=== PATIENT | female | born 1965 | race Caucasian/White ===

== ENCOUNTER → 2019-11-09 | Outpatient (REF) | payer BC ==
[2019-11-09 13:03] LABS: BASO % 0.4 % (0.0-1.0); EOS # 0.1 10^3/uL (0.0-0.5); EOS % 2.3 % (0.0-3.0); HEMATOCRIT 40.2 % (36.0-47.0); HEMOGLOBIN 12.8 g/dl (12.0-15.5); LYMPH # 0.9 10^3/uL (1.5-5.0); LYMPH % 19.1 % (24.0-44.0); MEAN CORPUSCULAR HEMOGLOBIN 29.8 pg (27.0-33.0); MEAN CORPUSCULAR HGB CONC 31.8 g/dl (32.0-36.5); MEAN CORPUSCULAR VOLUME 93.5 fl (80.0-96.0); MONO # 0.4 10^3/uL (0.0-0.8); NEUTROPHILS # 3.4 10^3/uL (1.5-8.5); PLATELET COUNT, AUTOMATED 204 10^3/uL (150-450); WHITE BLOOD COUNT 4.9 10^3/uL (4.0-10.0)
[2019-11-09 13:35] LABS: ALBUMIN 3.6 GM/DL (3.2-5.2); ALT/SGPT 20 U/L (12-78); BILIRUBIN,TOTAL 0.5 MG/DL (0.2-1.0); BLOOD UREA NITROGEN 19 MG/DL (7-18); CALCIUM LEVEL 8.6 MG/DL (8.5-10.1); CARBON DIOXIDE LEVEL 30 MEQ/L (21-32); CHLORIDE LEVEL 107 MEQ/L (98-107); CHOLESTEROL LEVEL 258 MG/DL (<200); CREATININE FOR GFR 0.69 MG/DL (0.55-1.30); GLOMERULAR FILTRATION RATE > 60.0 (>51); GLUCOSE, FASTING 78 MG/DL (70-100); HDL CHOLESTEROL 77 MG/DL (>40); LDL CHOLESTEROL 166 MG/DL (<100); MAGNESIUM LEVEL 2.2 MG/DL (1.8-2.4); NON-HDL-C 181 MG/DL; POTASSIUM SERUM 4.2 MEQ/L (3.5-5.1); SODIUM LEVEL 143 MEQ/L (136-145); TOTAL PROTEIN 7.3 GM/DL (6.4-8.2); TRIGLYCERIDES LEVEL 76 MG/DL (<150)
[2019-11-09 13:37] LABS: TOTAL 25(OH) VITAMIN D 26.9 NG/ML (30.0-100.0)
[2019-11-09 13:38] LABS: LUTEINIZING HORMONE 67.3 mIU/mL
== END ==
LOC: M SFHCLACO 10:26
PROVIDERS: ATTEND Physician Assistant
DX: Z00.00 Encounter for general adult medical examination without abnormal findings (principal); F34.1 Dysthymic disorder; N95.1 Menopausal and female climacteric states; R63.5 Abnormal weight gain

== ENCOUNTER 2020-03-04 18:06 | Emergency (ER) | payer BC ==
[~2020-03-04] VITALS: Ht 154.9 cm; Wt 70.8 kg
[2020-03-04] MEDS ORDERED: DULO1CAP5 (18:21)
[2020-03-04] MEDS ORDERED: ONDA4TAB6 (18:21)
[2020-03-04] MEDS ORDERED: SERT50TA29 (18:21)
[2020-03-04] MEDS ORDERED: PROM25TA12 (18:21)
[2020-03-04 19:29] LABS: BASO % 0.3 % (0.0-1.0); HEMATOCRIT 40.7 % (36.0-47.0); HEMOGLOBIN 13.4 g/dl (12.0-15.5); LYMPH # 1.4 10^3/uL (1.5-5.0); LYMPH % 11.3 % (24.0-44.0); MEAN CORPUSCULAR HEMOGLOBIN 29.1 pg (27.0-33.0); MEAN CORPUSCULAR HGB CONC 32.9 g/dl (32.0-36.5); MEAN CORPUSCULAR VOLUME 88.5 fl (80.0-96.0); MONO % 8.1 % (0.0-5.0); NEUTROPHILS # 9.6 10^3/uL (1.5-8.5); NEUTROPHILS % 79.8 % (36.0-66.0); PLATELET COUNT, AUTOMATED 259 10^3/uL (150-450)
[2020-03-04] MEDS ORDERED: ONDANSETRON 4MG/2ML VIAL IV ONE (19:30)
[2020-03-04] MEDS ORDERED: NS 1,000 ML IV ONE (19:30)
[2020-03-04 20:38] LABS: ALT/SGPT 18 U/L (12-78); BILIRUBIN,DIRECT 0.2 MG/DL (0.0-0.2); BLOOD UREA NITROGEN 22 MG/DL (7-18); CALCIUM LEVEL 9.7 MG/DL (8.5-10.1); CARBON DIOXIDE LEVEL 25 MEQ/L (21-32); CHLORIDE LEVEL 100 MEQ/L (98-107); CK-MB VALUE MASS < 1.0 NG/ML (<3.6); CPK CREATINE PHOSPHOKINASE 58 U/L (26-192); CREATININE FOR GFR 0.75 MG/DL (0.55-1.30); GLOMERULAR FILTRATION RATE > 60.0 (>51); GLUCOSE, FASTING 88 MG/DL (70-100); LIPASE 182 U/L (73-393); MB/CK RELATIVE INDEX 1.72 (< OR =4); POTASSIUM SERUM 3.1 MEQ/L (3.5-5.1); SODIUM LEVEL 134 MEQ/L (136-145); TOTAL PROTEIN 8.6 GM/DL (6.4-8.2); TROPONIN I < 0.02 NG/ML (< 0.10)
[2020-03-04] MEDS ORDERED: POTASSIUM CHLORIDE 10 MEQ SR TABLET PO ONE (20:45)
[2020-03-04] MEDS: GASTROGRAFIN SOLUTION 30ML PO SCH ×2 (21:08→21:55)
[2020-03-04] MEDS ORDERED: ISOVUE-370 76% 100ML VIAL As Ordered ONE (22:19)
--- NOTE | 2020-03-04 22:55 | REPVR ---
PROCEDURE INFORMATION: Exam: CT Abdomen And Pelvis With Contrast Exam date and time: 03/04/2020 10:34 PM Age: 55 years old Clinical indication: Abdominal pain; Generalized; Additional info: Abd pain with n/v x4 days R/O infectious process TECHNIQUE: Imaging protocol: Computed tomography of the abdomen and pelvis with intravenous contrast. Radiation optimization: All CT scans at this facility use at least one of these dose optimization techniques: automated exposure control; mA and/or kV adjustment per patient size (includes targeted exams where dose is matched to clinical indication); or iterative reconstruction. Contrast material: ISOVUE 370; Contrast volume: 100 ml; Contrast route: INTRAVENOUS (IV); COMPARISON: No relevant prior studies available. FINDINGS: Liver: There is a diffuse decrease in hepatic parenchymal density, consistent with steatosis. Several small simple hepatic cysts measure up to 9 mm in segment 4A of the left lobe of the liver. Gallbladder and bile ducts: Normal. No calcified stones. No ductal dilation. Pancreas: Normal. No ductal dilation. Spleen: Normal. No splenomegaly. Adrenals: Normal. No mass. Kidneys and ureters: 1.4 cm calculus demonstrated in the left renal pelvis associated with inflammatory changes in the left renal pelvis and proximal left ureter, findings suggestive of infection. Stomach and bowel: Unremarkable. No obstruction. No mucosal thickening. Appendix: No evidence of appendicitis. Intraperitoneal space: Unremarkable. No free air. No significant fluid collection. Vasculature: Unremarkable. No abdominal aortic aneurysm. Lymph nodes: Unremarkable. No enlarged lymph nodes. Urinary bladder: Unremarkable as visualized. Reproductive: Unremarkable as visualized. Bones/joints: Mild central spinal stenosis L2-L3, moderate central spinal stenosis L3-L4 and L4-L5. Soft tissues: Unremarkable. IMPRESSION: 1. There is a diffuse decrease in hepatic parenchymal density, consistent with steatosis. 2. 1.4 cm calculus demonstrated in the left renal pelvis associated with inflammatory changes in the left renal pelvis and proximal left ureter, findings suggestive of infection. 3. Small hepatic cysts. Electronically signed by: Zac Geiger On 03/04/2020 22:55:10 PM
[2020-03-04] MEDS ORDERED: LevoFLOXacin IV 750 MG in IV 1 EA IV ONE (23:15)
[2020-03-05] MEDS ORDERED: LEVA750T7 PO (01:07)
[2020-03-05 01:34] VITALS: BP 162/90
--- NOTE | 2020-03-05 07:33 | ECGEPIP ---
[facility] - ED Test Date: 2020-03-04 Pat Name: KERRY LOBATO Department: Room: - Gender: Female [employer]: oma : [id number] Requested By: Priscila Melton Order Number: [id number] Reading MD: Didier Resendez Measurements Intervals [place] Rate: 93 P: 4 ND: 96 QRS: 27 QRSD: 94 T: 40 QT: 363 QTc: 454 Interpretive Statements SINUS RHYTHM WITH SHORT ND INTERVAL POSSIBLE LEFT ATRIAL ENLARGEMENT INCOMPLETE RIGHT BUNDLE BRANCH BLOCK POOR R WAVE PROGRESSION SIMILAR TO PRIOR ON SAME DATE Electronically Signed on 03-05-2020 7:33:47 EDT by Didier Resendez
== END 2020-03-05 01:35 | disposition home or self-care (01) ==
LOC: M ED 18:06
DX: N10 Acute pyelonephritis (principal); N20.0 Calculus of kidney; E78.5 Hyperlipidemia, unspecified; F32.9 Major depressive disorder, single episode, unspecified; Z88.0 Allergy status to penicillin; Z88.1 Allergy status to other antibiotic agents
CPT/HCPCS: 36415; 74177; 80048; 80076; 81001; 82550; 82553; 83690; 84484; 85025; 87088; 87186; 93005; 96361; 96365; 96366; 96375; 99284; J1956; J2405; Q9963; Q9967

== ENCOUNTER 2020-10-09 14:06 | Emergency (ER) | payer BC ==
[~2020-10-09] VITALS: Ht 160 cm; Wt 76.0 kg
[~2020-10-09 14:06] MED LIST: DULO1CAP5; LEVA750T7 PO; ONDA4TAB6; PROM25TA12; SERT50TA29
[2020-10-09] MEDS ORDERED: VALA500T5 (14:14)
[2020-10-09] MEDS ORDERED: GABA-1171 (14:14)
[2020-10-09] MEDS ORDERED: PRED10TA2 (14:14)
[2020-10-09 17:48] LABS: HEMATOCRIT 38.2 % (36.0-47.0); HEMOGLOBIN 12.2 g/dl (12.0-15.5); MEAN CORPUSCULAR HGB CONC 31.9 g/dl (32.0-36.5); MEAN CORPUSCULAR VOLUME 90.7 fl (80.0-96.0); PLATELET COUNT, AUTOMATED 194 10^3/uL (150-450); RED BLOOD COUNT 4.21 10^6/uL (4.00-5.40)
[2020-10-09 18:03] LABS: ATYPICAL LYMPH 3 % (0-5); BASOPHILS 3 % (0-1); EOSINOPHILS 3 % (0-3); LYMPHOCYTES 26 % (16-44); MONOCYTES 7 % (0-5); NEUTROPHILS 58 % (28-66); PLATELET ESTIMATE NORMAL (NORMAL)
[2020-10-09] MEDS ORDERED: NS 1,000 ML IV ONE (18:10)
[2020-10-09 18:15] LABS: ALBUMIN 3.6 GM/DL (3.2-5.2); ALT/SGPT 26 U/L (12-78); BILIRUBIN,DIRECT < 0.1 MG/DL (0.0-0.2); BILIRUBIN,TOTAL 0.4 MG/DL (0.2-1.0); C REACTIVE PROTEIN QUANTITATIV 1.15 MG/DL (0.00-0.30); TOTAL PROTEIN 7.7 GM/DL (6.4-8.2)
[2020-10-09 18:16] LABS: ERYTHROCYTE SEDIMENTATION RATE 46 mm/hr (0-30)
[2020-10-09] MEDS ORDERED: ISOVUE-370 76% 100ML VIAL As Ordered ONE (18:28)
[2020-10-09] MEDS ORDERED: PROPARACAINE 0.5% OPHTH SOL 15ML OU ONE (18:45)
[2020-10-09] MEDS ORDERED: FLUORESCEIN OPHTH 1 MG STRIP OU ONE (18:45)
--- NOTE | 2020-10-09 18:52 | REPVR ---
PROCEDURE INFORMATION: Exam: CT Orbits With Contrast Exam date and time: 10/09/2020 5:08 PM Age: 55 years old Clinical indication: Condition or disease; Other: Ocular shingle; Additional info: Ocular shingles TECHNIQUE: Imaging protocol: Computed tomography images of the orbits with intravenous contrast. Radiation optimization: All CT scans at this facility use at least one of these dose optimization techniques: automated exposure control; mA and/or kV adjustment per patient size (includes targeted exams where dose is matched to clinical indication); or iterative reconstruction. Contrast material: ISOVUE 370; Contrast volume: 75 ml; Contrast route: INTRAVENOUS (IV); COMPARISON: No relevant prior studies available. FINDINGS: Orbital cavity: No postseptal orbital or ocular inflammatory changes identified. The extraocular muscles do not appear enlarged or inflamed. Paranasal sinuses: Retention cyst or polyp in the inferior left maxillary sinus. No evidence of acute or chronic obstructive sinusitis. Oropharynx: The palatine tonsils are mildly enlarged, probably a chronic finding. Bones/joints: The nasal septum is deviated to the left. Lymph nodes: Small bilateral parotid lymph nodes, likely normal or reactive. Soft tissues: Mild frontal scalp and medial periorbital soft tissue edema. No evidence of soft tissue abscess. IMPRESSION: No orbital inflammatory changes identified. Electronically signed by: Mitali Chou On 10/09/2020 18:52:16 PM
[2020-10-09 21:31] VITALS: BP 133/82
== END 2020-10-09 21:36 | disposition short-term general hospital (02) ==
LOC: M ED 14:06
DX: B02.9 Zoster without complications (principal); I10 Essential (primary) hypertension; E78.5 Hyperlipidemia, unspecified; Z88.0 Allergy status to penicillin; Z88.1 Allergy status to other antibiotic agents; Z79.899 Other long term (current) drug therapy
CPT/HCPCS: 70487; 80047; 80076; 85025; 85652; 86140; 96360; 96361; 99284; Q9967; U0002

== ENCOUNTER → 2022-05-07 | Outpatient (CLI) | payer BC ==
[~2022-05-07] MED LIST changes: +GABA-1171; +PRED10TA2; +VALA500T5
== END ==
LOC: M WHC 13:35
PROVIDERS: ATTEND Physical Therapist
DX: Z12.31 Encounter for screening mammogram for malignant neoplasm of breast (principal)

== ENCOUNTER 2024-04-21 22:48 | Emergency (ER) | payer BC ==
[~2024-04-21] VITALS: Ht 154.9 cm; Wt 70.5 kg
[~2024-04-21 22:48] MED LIST changes: +ONDA-282; -ONDA4TAB6
[2024-04-22] MEDS: ONDANSETRON 4MG 2ML VIAL IV ONE (01:03)
[2024-04-22] MEDS: KETOROLAC 30 MG/ML 1ML VIAL IV ONE (01:03)
[2024-04-22 01:28] LABS: BASO % 0.2 % (0.0-1.0); EOS % 0.1 % (0.0-3.0); HEMATOCRIT 35.3 % (36.0-47.0); HEMOGLOBIN 11.9 g/dl (12.0-15.5); LYMPH # 0.4 10^3/uL (1.5-5.0); LYMPH % 4.2 % (24.0-44.0); MEAN CORPUSCULAR HEMOGLOBIN 29.8 pg (27.0-33.0); MEAN CORPUSCULAR HGB CONC 33.7 g/dl (32.0-36.5); MEAN CORPUSCULAR VOLUME 88.5 fl (80.0-96.0); MONO # 0.2 10^3/uL (0.0-0.8); MONO % 1.8 % (2.0-8.0); NEUTROPHILS # 9.5 10^3/uL (1.5-8.5); NEUTROPHILS % 93.5 % (36.0-66.0); PLATELET COUNT, AUTOMATED 234 10^3/uL (150-450); RED BLOOD COUNT 3.99 10^6/uL (4.00-5.40); WHITE BLOOD COUNT 10.2 10^3/uL (4.0-10.0)
[2024-04-22 01:36] LABS: APPEARANCE, URINE HAZY (CLEAR); BACTERIA, URINE AUTO 1+ (NEGATIVE); BILIRUBIN, URINE AUTO NEGATIVE (NEGATIVE); BLOOD, URINE BLOOD 3+ (NEGATIVE); COLOR, URINE YELLOW (YELLOW); GLUCOSE, URINE (UA) AUTO NEGATIVE (NEGATIVE); KETONE, URINE AUTO 1+ mg/dL (NEGATIVE); LEUKOCYTE ESTERASE, URINE AUTO 2+ (NEGATIVE); MUCUS, URINE SMALL (NEGATIVE); NITRITE, URINE AUTO NEGATIVE (NEGATIVE); PROTEIN, URINE AUTO 2+ mg/dL (NEGATIVE); RBC, URINE AUTO 106 /HPF (0-3); SPECIFIC GRAVITY URINE AUTO 1.018 (1.002-1.035); SQUAMOUS EPITHELIAL CELL UR AU 0 /HPF (0-6); UROBILINOGEN, URINE AUTO 0.2 mg/dL (0.0-2.0); WBC, URINE AUTO 13 /HPF (0-3)
[2024-04-22 02:24] LABS: ALBUMIN 3.8 G/DL (3.2-5.2); ALKALINE PHOSPHATASE 85 U/L (35-104); ALT/SGPT 16 U/L (7.0-40); AST/SGOT 35 U/L (<34); BILIRUBIN,DIRECT < 0.1 MG/DL (<0.4); BILIRUBIN,TOTAL 0.5 MG/DL (0.3-1.2); BLOOD UREA NITROGEN 24 MG/DL (9-23); CARBON DIOXIDE LEVEL 26 MMOL/L (20-31); CHLORIDE LEVEL 103 MMOL/L (98-107); CREATININE FOR GFR 0.76 MG/DL (0.55-1.30); GLOMERULAR FILTRATION RATE > 60.0 (>51); GLUCOSE, FASTING 165 MG/DL (60-100); LIPASE 28 U/L (12-53); POTASSIUM SERUM 4.8 MMOL/L (3.5-5.1); SODIUM LEVEL 137 MMOL/L (136-145); TOTAL PROTEIN 8.3 G/DL (5.7-8.2)
[2024-04-22] MEDS: METOCLOPRAMIDE INJ 10MG/2ML VIAL IV ONE (03:00)
[2024-04-22] MEDS: MORPHINE 4 MG/ML 1ML VIAL IV PRN (04:52)
[2024-04-22 06:00] VITALS: BP 167/92
[2024-04-22 06:03] VITALS: TEMP 98.1
[2024-04-22] MEDS ORDERED: PERC5TAB12 PO (06:10)
[2024-04-22] MEDS ORDERED: ONDA-282 PO (06:10)
[2024-04-22 06:22] VITALS: O2SAT 98
[2024-04-22] MEDS: OXYCODONE/APAP 5MG/325MG(HOME DOSE PACK) PO ONE (07:07)
== END 2024-04-22 07:12 | disposition home or self-care (01) ==
LOC: M ED 22:48
DX: N13.2 Hydronephrosis with renal and ureteral calculous obstruction (principal); Z88.0 Allergy status to penicillin; Z88.1 Allergy status to other antibiotic agents; M51.369 Other intervertebral disc degeneration, lumbar region without mention of lumbar back pain or lower extremity pain
CPT/HCPCS: 74176; 80047; 80048; 80076; 81001; 83690; 85025; 96374; 96375; 99284; J1885; J2405; J2765

== ENCOUNTER 2024-05-11 15:57 | Observation (INO) | payer BC ==
[~2024-05-11] VITALS: Ht 154.9 cm; Wt 67.3 kg
[~2024-05-11 15:57] MED LIST changes: -GABA-1171; +GABA-1171 PO; +ONDA-282 PO; +PERC5TAB12 PO
[2024-05-11] MEDS ORDERED: BUPR-597 PO (16:14)
[2024-05-11 17:46] LABS: BLOOD UREA NITROGEN 18 MG/DL (9-23); CALCIUM LEVEL 9.9 MG/DL (8.5-10.1); CARBON DIOXIDE LEVEL 26 MMOL/L (20-31); CHLORIDE LEVEL 102 MMOL/L (98-107); CREATININE FOR GFR 0.67 MG/DL (0.55-1.30); GLOMERULAR FILTRATION RATE > 60.0 (>51); GLUCOSE, FASTING 122 MG/DL (60-100); HEMATOCRIT 38.5 % (36.0-47.0); HEMOGLOBIN 12.7 g/dl (12.0-15.5); MEAN CORPUSCULAR HEMOGLOBIN 29.5 pg (27.0-33.0); MEAN CORPUSCULAR VOLUME 89.3 fl (80.0-96.0); PLATELET COUNT, AUTOMATED 231 10^3/uL (150-450); POTASSIUM SERUM 3.5 MMOL/L (3.5-5.1); RED BLOOD COUNT 4.31 10^6/uL (4.00-5.40); SODIUM LEVEL 139 MMOL/L (136-145); WHITE BLOOD COUNT 10.4 10^3/uL (4.0-10.0)
[2024-05-11] MEDS: ONDANSETRON 4MG 2ML VIAL IV ONE (19:06)
[2024-05-11] MEDS: MORPHINE 4 MG/ML 1ML VIAL IV ONE (19:11)
[2024-05-11] MEDS ORDERED: ISOVUE-370 76% 100ML VIAL As Ordered ONE (19:26)
[2024-05-11] MEDS ORDERED: ACETAMINOPHEN 325 MG TAB PO PRN (21:45)
[2024-05-11] MEDS ORDERED: PROMETHAZINE 25MG/ML 1ML VIAL IV PRN (21:45)
[2024-05-11] MEDS ORDERED: MOM 30ML SUSPENSION UDC PO PRN (21:45)
[2024-05-11 22:26] VITALS: BP 119/97; TEMP 97.7; O2SAT 97
[2024-05-11] MEDS: MORPHINE 2 MG/ML 1ML VIAL IV PRN (22:36)
[2024-05-11] MEDS ORDERED: MULT-90 PO (23:03)
[2024-05-11] MEDS ORDERED: OXYC1TAB23 PO (23:03)
[2024-05-11] MEDS ORDERED: ALBU8.5H INH (23:03)
[2024-05-11] MEDS ORDERED: ONDA-282 PO (23:03)
[2024-05-11] MEDS ORDERED: NEUR100C PO (23:03)
[2024-05-11] MEDS ORDERED: ZOLO100T PO (23:03)
[2024-05-11] MEDS ORDERED: HOME MED LIST COMPLETE! XX SCH (23:05)
[2024-05-12] VITALS (13 sets, daily range): BP systolic 134–193; BP diastolic 83–123; TEMP 97–98.2; O2SAT 95–99
[2024-05-12 06:33] LABS: ALBUMIN 3.6 G/DL (3.2-5.2); ALKALINE PHOSPHATASE 72 U/L (35-104); ALT/SGPT 14 U/L (7.0-40); AST/SGOT 14 U/L (<34); BILIRUBIN,TOTAL 0.6 MG/DL (0.3-1.2); BLOOD UREA NITROGEN 19 MG/DL (9-23); CALCIUM LEVEL 9.9 MG/DL (8.5-10.1); CARBON DIOXIDE LEVEL 28 MMOL/L (20-31); CHLORIDE LEVEL 102 MMOL/L (98-107); CREATININE FOR GFR 0.82 MG/DL (0.55-1.30); GLOMERULAR FILTRATION RATE > 60.0 (>51); GLUCOSE, FASTING 88 MG/DL (60-100); POTASSIUM SERUM 3.4 MMOL/L (3.5-5.1); SODIUM LEVEL 139 MMOL/L (136-145); TOTAL PROTEIN 7.5 G/DL (5.7-8.2)
[2024-05-12] MEDS: HEPARIN SOD (PORCINE) 5000UNITS/ML 1ML VIAL/SYRINGE SC SCH (08:07)
[2024-05-12] MEDS: cefTRIAXone SOD 1 GM in DEXTROSE 5% (D5W) ADV/MINI-BAG 50 ML IV SCH (08:07)
[2024-05-12] MEDS: POTASSIUM CHLORIDE 10% LIQ 20MEQ/15ML UDC PO ONE (08:07)
[2024-05-12 08:19] LABS: HEMOGLOBIN 12.8 g/dl (12.0-15.5); MEAN CORPUSCULAR HEMOGLOBIN 29.6 pg (27.0-33.0); MEAN CORPUSCULAR HGB CONC 32.8 g/dl (32.0-36.5); MEAN CORPUSCULAR VOLUME 90.1 fl (80.0-96.0); PLATELET COUNT, AUTOMATED 205 10^3/uL (150-450); RED BLOOD COUNT 4.33 10^6/uL (4.00-5.40); WHITE BLOOD COUNT 8.6 10^3/uL (4.0-10.0)
[2024-05-12 08:31] LABS: INR 1.06; PARTIAL THROMBOPLASTIN TIME 26.8 SECONDS (24.8-34.2); PROTHROMBIN TIME 14.1 SECONDS (12.5-14.5)
[2024-05-12] MEDS: NS 1,000 ML IV SCH ×2 (10:49→17:14)
[2024-05-12] MEDS ORDERED: propofoL 200 MG/20 ML VIAL As Ordered ONE (11:28)
[2024-05-12] MEDS ORDERED: LIDOCAINE PRES-FREE 2% 10ML AMP As Ordered ONE (11:28)
[2024-05-12] MEDS ORDERED: MIDAZOLAM INJ 2MG/2ML VIAL As Ordered ONE (11:28)
[2024-05-12] MEDS ORDERED: fentaNYL 100 MCG/2 ML INJECTION As Ordered ONE (11:29)
[2024-05-12] MEDS ORDERED: oxyCODONE 5MG TAB PO PRN (11:30)
[2024-05-12] MEDS ORDERED: ONDANSETRON 4MG 2ML VIAL IV PRN (11:30)
[2024-05-12] MEDS ORDERED: HYDROMORPHONE HCL 0.5 MG/ 0.5 ML SYRINGE IV PRN (11:30)
[2024-05-12] MEDS ORDERED: fentaNYL 100 MCG/2 ML INJECTION IV PRN (11:30)
[2024-05-12] MEDS ORDERED: MEPERIDINE 25 MG/ML 1ML VIAL IV PRN (11:30)
[2024-05-12] MEDS: CIPROFLOXACIN/D5W 400 MG/200 ML BAG As Ordered ONE (11:58)
[2024-05-12] MEDS: LIDOCAINE 2% 5ML JELLY UROJET As Ordered ONE (12:07)
[2024-05-12] MEDS: ISOVUE-300 61% 100ML VIAL As Ordered ONE (12:08)
[2024-05-12] MEDS: oxyBUTYnin 5 MG TAB PO PRN (15:09)
[2024-05-12] MEDS ORDERED: MORPHINE 4 MG/ML 1ML VIAL IV PRN (16:40)
[2024-05-12] MEDS: PROMETHAZINE 25MG/ML 1ML VIAL IV ONE (17:12)
[2024-05-12] MEDS: **hydrALAZINE** 10 MG TAB PO ONE (18:37)
[2024-05-12] MEDS: ONDANSETRON 4MG 2ML VIAL IV PRN (20:12)
[2024-05-12] MEDS: amLODIPine 5 MG TAB PO SCH (22:57)
[2024-05-13 01:21] VITALS: BP 166/98; TEMP 97.3; O2SAT 98
[2024-05-13 05:26] VITALS: BP 172/100; TEMP 97.9; O2SAT 94
[2024-05-13] MEDS: POTASSIUM CHLORIDE 10MEQ SR TABLET PO ONE (05:56)
[2024-05-13] MEDS: **hydrALAZINE** 10 MG TAB PO ONE (05:57)
[2024-05-13] MEDS: PERCOCET 5MG/325MG TAB PO SCH (06:00)
[2024-05-13 06:17] LABS: HEMATOCRIT 40.9 % (36.0-47.0); HEMOGLOBIN 13.1 g/dl (12.0-15.5); MEAN CORPUSCULAR HEMOGLOBIN 29.3 pg (27.0-33.0); MEAN CORPUSCULAR VOLUME 91.5 fl (80.0-96.0); PLATELET COUNT, AUTOMATED 210 10^3/uL (150-450); RED BLOOD COUNT 4.47 10^6/uL (4.00-5.40)
[2024-05-13 06:45] LABS: BLOOD UREA NITROGEN 21 MG/DL (9-23); CALCIUM LEVEL 9.1 MG/DL (8.5-10.1); CARBON DIOXIDE LEVEL 24 MMOL/L (20-31); CHLORIDE LEVEL 104 MMOL/L (98-107); CREATININE FOR GFR 0.66 MG/DL (0.55-1.30); GLOMERULAR FILTRATION RATE > 60.0 (>51); GLUCOSE, FASTING 101 MG/DL (60-100); POTASSIUM SERUM 3.8 MMOL/L (3.5-5.1); SODIUM LEVEL 140 MMOL/L (136-145)
[2024-05-13] MEDS ORDERED: MORPHINE 4 MG/ML 1ML VIAL IV PRN (07:10)
[2024-05-13 08:00] VITALS: BP 147/58; TEMP 97.9; O2SAT 94
[2024-05-13] MEDS: ALBUTEROL 90 MCG/ACT 8GM HFA INHALER INH SCH (08:00)
[2024-05-13] MEDS: GABAPENTIN 100 MG CAP PO SCH (08:03)
[2024-05-13] MEDS ORDERED: PROMETHAZINE 25MG/ML 1ML VIAL IV PRN (08:25)
[2024-05-13] MEDS: METOCLOPRAMIDE INJ 10MG/2ML VIAL IV ONE (09:00)
[2024-05-13 12:00] VITALS: BP 150/70; TEMP 97.9; O2SAT 95
[2024-05-13] MEDS ORDERED: ALBUTEROL 90 MCG/ACT 8GM HFA INHALER INH PRN (12:30)
[2024-05-13] MEDS: MORPHINE 2 MG/ML 1ML VIAL IV PRN (13:24)
[2024-05-13 16:00] VITALS: BP 158/62; TEMP 97.7; O2SAT 97
[2024-05-13] MEDS: buPROPion **XL** TABLET 150MG (WELLBUTRIN XL) PO SCH (20:27)
[2024-05-13] MEDS: SERTRALINE HCL 50 MG TAB PO SCH (20:27)
[2024-05-13] MEDS ORDERED: SERTRALINE 100 MG TAB PO SCH (21:00)
[2024-05-14] VITALS (9 sets, daily range): BP systolic 134–188; BP diastolic 90–111; TEMP 97.3–97.7; O2SAT 95–98
[2024-05-14 06:03] LABS: HEMATOCRIT 40.4 % (36.0-47.0); HEMOGLOBIN 13.3 g/dl (12.0-15.5); MEAN CORPUSCULAR HEMOGLOBIN 29.6 pg (27.0-33.0); MEAN CORPUSCULAR HGB CONC 32.9 g/dl (32.0-36.5); MEAN CORPUSCULAR VOLUME 89.8 fl (80.0-96.0); PLATELET COUNT, AUTOMATED 210 10^3/uL (150-450); WHITE BLOOD COUNT 8.2 10^3/uL (4.0-10.0)
[2024-05-14 06:36] LABS: BLOOD UREA NITROGEN 16 MG/DL (9-23); CALCIUM LEVEL 8.7 MG/DL (8.5-10.1); CARBON DIOXIDE LEVEL 25 MMOL/L (20-31); CHLORIDE LEVEL 102 MMOL/L (98-107); CREATININE FOR GFR 0.58 MG/DL (0.55-1.30); GLOMERULAR FILTRATION RATE > 60.0 (>51); GLUCOSE, FASTING 93 MG/DL (60-100); POTASSIUM SERUM 3.6 MMOL/L (3.5-5.1); SODIUM LEVEL 137 MMOL/L (136-145)
[2024-05-14] MEDS: FUROSEMIDE 40MG/4ML VIAL IV ONE (10:27)
[2024-05-14] MEDS: **hydrALAZINE** 10 MG TAB PO ONE (11:55)
[2024-05-14] MEDS: LACTULOSE 20GM/30ML SYRUP UDC PO ONE (18:18)
[2024-05-14] MEDS: SENNA 8.6 MG TAB (SENOKOT) PO SCH (21:49)
[2024-05-14] MEDS: DOCUSATE SODIUM 100MG CAPSULE PO SCH (21:49)
[2024-05-15] VITALS: BP 138/93; TEMP 97.3; O2SAT 96
[2024-05-15] MEDS: LACTULOSE 20GM/30ML SYRUP UDC PO SCH
[2024-05-15 03:31] VITALS: BP 141/92; TEMP 97.5; O2SAT 97
[2024-05-15 05:38] LABS: HEMATOCRIT 41.4 % (36.0-47.0); HEMOGLOBIN 14.1 g/dl (12.0-15.5); MEAN CORPUSCULAR HEMOGLOBIN 29.7 pg (27.0-33.0); MEAN CORPUSCULAR HGB CONC 34.1 g/dl (32.0-36.5); MEAN CORPUSCULAR VOLUME 87.2 fl (80.0-96.0); PLATELET COUNT, AUTOMATED 224 10^3/uL (150-450); RED BLOOD COUNT 4.75 10^6/uL (4.00-5.40); WHITE BLOOD COUNT 9.3 10^3/uL (4.0-10.0)
[2024-05-15 06:12] LABS: BLOOD UREA NITROGEN 24 MG/DL (9-23); CALCIUM LEVEL 9.6 MG/DL (8.5-10.1); CARBON DIOXIDE LEVEL 30 MMOL/L (20-31); CHLORIDE LEVEL 96 MMOL/L (98-107); CREATININE FOR GFR 0.66 MG/DL (0.55-1.30); GLOMERULAR FILTRATION RATE > 60.0 (>51); GLUCOSE, FASTING 108 MG/DL (60-100); POTASSIUM SERUM 3.3 MMOL/L (3.5-5.1); SODIUM LEVEL 135 MMOL/L (136-145)
[2024-05-15 08:00] VITALS: BP 132/91; TEMP 97.9; O2SAT 96
[2024-05-15 08:12] VITALS: BP 132/91
[2024-05-15] MEDS: CEFDINIR 300 MG CAP (OMNICEF) PO SCH (08:12)
[2024-05-15] MEDS: POTASSIUM CHLORIDE 10MEQ SR TABLET PO ONE (08:25)
[2024-05-15 12:20] VITALS: BP 148/100; TEMP 97.5; O2SAT 98
[2024-05-15 12:24] VITALS: O2SAT 98
[2024-05-15] MEDS ORDERED: OXYB5TAB14 PO (15:00)
[2024-05-15] MEDS ORDERED: COLA100C5 PO (15:00)
[2024-05-15] MEDS ORDERED: SENO8.6T5 PO (15:00)
[2024-05-15] MEDS ORDERED: AMLO1TAB24 PO (15:00)
[2024-05-15] MEDS ORDERED: ONDA-282 PO (15:03)
[2024-05-15] MEDS ORDERED: CEFD300CAP PO (15:04)
[2024-05-15] MEDS ORDERED: MOM30SS2 PO (15:07)
[2024-05-21] MEDS ORDERED: COLA100C5 PO (11:11)
[2024-05-21] MEDS ORDERED: OXYB5TAB14 PO (11:11)
== END 2024-05-15 17:30 | disposition home or self-care (01) ==
LOC: M ED 15:57 → M ED INP 21:45 → M MSPAV 22:22
PROVIDERS: ADMIT Family Medicine; ATTEND Internal Medicine
DX: N20.0 Calculus of kidney (principal); G89.18 Other acute postprocedural pain; I10 Essential (primary) hypertension; I49.8 Other specified cardiac arrhythmias; N13.39 Other hydronephrosis; R10.31 Right lower quadrant pain; R10.32 Left lower quadrant pain; R11.10 Vomiting, unspecified; M54.9 Dorsalgia, unspecified; K59.00 Constipation, unspecified; E78.5 Hyperlipidemia, unspecified; E87.6 Hypokalemia; G62.9 Polyneuropathy, unspecified; F32.A Depression, unspecified; Z91.018 Allergy to other foods; Z88.0 Allergy status to penicillin; Z79.899 Other long term (current) drug therapy
CPT/HCPCS: 36415; 52332; 74018; 74176; 74177; 74420; 80048; 80053; 81001; 85027; 85610; 85730; 87086; 93005; 96361; 96365; 96366; 96372; 96375; 96376; 99285; C1769; C2617; J0696; J0744; J1940; J2250; J2405; J2550; J2765; J3010; Q9967

== ENCOUNTER 2024-05-28 07:22 | Outpatient (CLI) | payer BC ==
[~2024-05-28] VITALS: Ht 154.9 cm; Wt 75.0 kg
[~2024-05-28 07:22] MED LIST changes: +ALBU8.5H INH; +AMLO1TAB24 PO; +BUPR-597 PO; +CEFD300CAP PO; +COLA100C5 PO; +MOM30SS2 PO; +MULT-90 PO; +NEUR100C PO; +OXYB5TAB14 PO; +OXYC1TAB23 PO; +SENO8.6T5 PO; +ZOLO100T PO
[2024-05-28 07:30] VITALS: TEMP 97.2
[2024-05-28] MEDS ORDERED: NS (Normal Saline) 0.9% 1,000 ML IV SCH ×2 (07:45→09:10)
[2024-05-28] MEDS ORDERED: CIPROFLOXACIN/D5W 400 MG/200 ML BAG As Ordered ONE (07:47)
[2024-05-28] MEDS ORDERED: ISOVUE-300 61% 100ML VIAL As Ordered ONE (07:47)
[2024-05-28] MEDS ORDERED: LIDOCAINE 1% MDV 20ML VIAL As Ordered ONE (07:47)
[2024-05-28] MEDS: CIPROFLOXACIN 400 MG in IV 1 EA IV ONE (08:13)
[2024-05-28] MEDS ORDERED: fentaNYL 100 MCG/2 ML INJECTION As Ordered ONE (08:19)
[2024-05-28] MEDS ORDERED: MIDAZOLAM INJ 2MG/2ML VIAL As Ordered ONE (08:20)
[2024-05-28 09:05] VITALS: BP 112/64; O2SAT 100
[2024-05-28] MEDS ORDERED: PERCOCET 5MG/325MG TAB PO PRN (09:10)
[2024-05-28] MEDS ORDERED: MORPHINE 2 MG/ML 1ML VIAL IV PRN (09:10)
[2024-05-28] MEDS ORDERED: ONDANSETRON 4MG 2ML VIAL IV PRN ×2 (09:10→13:55)
[2024-05-28] MEDS ORDERED: ACETAMINOPHEN 325 MG TAB PO PRN ×2 (09:10→13:55)
[2024-05-28] MEDS ORDERED: DULC5TAB PO (09:53)
[2024-05-28] MEDS ORDERED: SENN-186 PO (09:53)
[2024-05-28] MEDS ORDERED: HYDR-3713 PO (12:42)
[2024-05-28] MEDS ORDERED: CIPR-249 PO (12:42)
[2024-05-28] MEDS ORDERED: NORCO, ANEXSIA 5/325MG TABLET (HYDROcodone/ACETAMINOPHEN) PO PRN (13:55)
[2024-05-28] MEDS ORDERED: D5W/0.45% SODIUM CHLORIDE 1,000 ML IV SCH (13:55)
[2024-05-28] MEDS ORDERED: GABAPENTIN 100 MG CAP PO SCH (16:00)
[2024-05-28] MEDS ORDERED: DOCU100C16 PO (16:08)
[2024-05-28 16:12] LABS: HEMATOCRIT 26.4 % (36.0-47.0); HEMOGLOBIN 8.6 g/dl (12.0-15.5); MEAN CORPUSCULAR HEMOGLOBIN 29.9 pg (27.0-33.0); MEAN CORPUSCULAR HGB CONC 32.6 g/dl (32.0-36.5); MEAN CORPUSCULAR VOLUME 91.7 fl (80.0-96.0); PLATELET COUNT, AUTOMATED 208 10^3/uL (150-450); RED BLOOD COUNT 2.88 10^6/uL (4.00-5.40); WHITE BLOOD COUNT 12.2 10^3/uL (4.0-10.0)
[2024-05-28] MEDS ORDERED: ZOLO100T PO (16:25)
[2024-05-28 16:46] LABS: ALBUMIN 2.5 G/DL (3.2-5.2); ALKALINE PHOSPHATASE 39 U/L (35-104); ALT/SGPT 11 U/L (7.0-40); AST/SGOT 12 U/L (<34); BILIRUBIN,TOTAL 0.2 MG/DL (0.3-1.2); BLOOD UREA NITROGEN 14 MG/DL (9-23); CALCIUM LEVEL 7.2 MG/DL (8.5-10.1); CARBON DIOXIDE LEVEL 24 MMOL/L (20-31); CHLORIDE LEVEL 108 MMOL/L (98-107); CREATININE FOR GFR 0.74 MG/DL (0.55-1.30); GLOMERULAR FILTRATION RATE > 60.0 (>51); GLUCOSE, FASTING 187 MG/DL (60-100); POTASSIUM SERUM 3.1 MMOL/L (3.5-5.1); SODIUM LEVEL 141 MMOL/L (136-145); TOTAL PROTEIN 5.2 G/DL (5.7-8.2)
[2024-05-28] MEDS ORDERED: ALBUTEROL 90 MCG/ACT 8GM HFA INHALER INH SCH (17:00)
[2024-05-28] MEDS ORDERED: CIPROFLOXACIN 500MG TABLET PO SCH (18:00)
[2024-05-28] MEDS ORDERED: DOCUSATE SODIUM 100MG CAPSULE PO SCH (21:00)
[2024-05-28] MEDS ORDERED: buPROPion **XL** TABLET 150MG (WELLBUTRIN XL) PO SCH (21:00)
[2024-05-28] MEDS ORDERED: SERTRALINE HCL 50 MG TAB PO SCH (21:00)
[2024-05-29] MEDS ORDERED: amLODIPine 5 MG TAB PO SCH (09:00)
== END 2024-05-28 09:04 | disposition still patient (30) ==
LOC: M IRPRO 07:22 → M SDC 07:23 → M IRPRO 09:04 → M SDC 09:09
PROVIDERS: ATTEND Nurse Practitioner Family
DX: N20.0 Calculus of kidney (principal); I95.9 Hypotension, unspecified; R31.0 Gross hematuria; Z96.0 Presence of urogenital implants
CPT/HCPCS: 36415; 50432; 76942; 80053; 85027; 99152; C1729; C1769; C1894; J0744; J2250; J3010; Q9967

== ENCOUNTER 2024-05-28 09:05 | Day surgery (SDC) | payer BC ==
[~2024-05-28] VITALS: Ht 154.9 cm; Wt 74.8 kg
[2024-05-28] MEDS ORDERED: LR 1,000 ML IV SCH (09:40)
[2024-05-28] MEDS ORDERED: DULC5TAB PO (09:53)
[2024-05-28] MEDS ORDERED: SENN-186 PO (09:53)
[2024-05-28] MEDS ORDERED: propofoL 200 MG/20 ML VIAL As Ordered ONE (10:00)
[2024-05-28] MEDS ORDERED: LIDOCAINE 2% 100MG/5ML SDV (FOR ANES.) As Ordered ONE (10:00)
[2024-05-28] MEDS ORDERED: ROCURONIUM BROMIDE 50MG/5ML VIAL As Ordered ONE (10:00)
[2024-05-28] MEDS ORDERED: ONDANSETRON 4MG 2ML VIAL As Ordered ONE (10:01)
[2024-05-28] MEDS ORDERED: SUGAMMADEX SODIUM 500 MG/5 ML VIAL (BRIDION) As Ordered ONE (10:01)
[2024-05-28] MEDS ORDERED: fentaNYL 100 MCG/2 ML INJECTION As Ordered ONE (10:02)
[2024-05-28] MEDS ORDERED: MIDAZOLAM INJ 2MG/2ML VIAL As Ordered ONE (10:02)
[2024-05-28] MEDS ORDERED: dexmedeTOMIDine (4MCG/ML)200MCG/50ML BTL (PRECEDEX) As Ordered ONE (10:59)
[2024-05-28] MEDS ORDERED: GLYCOPYRROLATE INJ 0.2 MG/ML 2 ML VIAL As Ordered ONE (11:12)
[2024-05-28] MEDS ORDERED: ACETAMINOPHEN 1000MG/100ML IV BAG As Ordered ONE (11:13)
[2024-05-28] MEDS ORDERED: LACRILUBE (AKWA TEARS) OPHTH OINT 3.5GM As Ordered ONE (11:32)
[2024-05-28] MEDS: ISOVUE-300 61% 100ML VIAL As Ordered ONE (12:13)
[2024-05-28] MEDS ORDERED: fentaNYL 100 MCG/2 ML INJECTION IV PRN (12:20)
[2024-05-28] MEDS ORDERED: CIPR-249 PO (12:42)
[2024-05-28] MEDS ORDERED: HYDR-3713 PO (12:42)
[2024-05-28] MEDS: ONDANSETRON 4MG 2ML VIAL IV PRN (13:01)
[2024-05-28] MEDS: METOCLOPRAMIDE INJ 10MG/2ML VIAL IV PRN (13:33)
[2024-05-28] MEDS ORDERED: ACETAMINOPHEN 325 MG TAB PO PRN (14:15)
[2024-05-28] MEDS ORDERED: ONDANSETRON 4MG 2ML VIAL IV PRN (14:15)
[2024-05-28] MEDS: oxyCODONE 5MG TAB PO PRN (14:27)
[2024-05-28] MEDS: PROMETHAZINE 25MG/ML 1ML VIAL IV PRN (15:08)
[2024-05-28 15:30] VITALS: BP 121/82; TEMP 97.5; O2SAT 98
[2024-05-28] MEDS: D5W/0.45% SODIUM CHLORIDE 1,000 ML IV SCH (15:38)
[2024-05-28] MEDS ORDERED: GABAPENTIN 100 MG CAP PO PRN (16:00)
[2024-05-28] MEDS: ALBUTEROL 90 MCG/ACT 8GM HFA INHALER INH SCH (16:00)
[2024-05-28] MEDS ORDERED: DOCU100C16 PO (16:08)
[2024-05-28] MEDS ORDERED: HOME MED LIST COMPLETE! XX SCH (16:10)
[2024-05-28] MEDS ORDERED: ZOLO100T PO (16:25)
[2024-05-28] MEDS: CIPROFLOXACIN 500MG TABLET PO SCH (17:14)
[2024-05-28] MEDS: NORCO, ANEXSIA 5/325MG TABLET (HYDROcodone/ACETAMINOPHEN) PO PRN (19:47)
[2024-05-28] MEDS: SERTRALINE 100 MG TAB PO SCH (20:01)
[2024-05-28] MEDS: DOCUSATE SODIUM 100MG CAPSULE PO SCH (20:02)
[2024-05-28 20:20] VITALS: BP 123/82; TEMP 98.7; O2SAT 95
[2024-05-28] MEDS ORDERED: buPROPion **XL** TABLET 150MG (WELLBUTRIN XL) PO SCH (21:00)
[2024-05-28 23:08] VITALS: BP 128/82; TEMP 97.7; O2SAT 96
[2024-05-29 04:24] VITALS: BP 109/76; TEMP 98.1; O2SAT 100
[2024-05-29 08:45] VITALS: BP 105/67; TEMP 97.9; O2SAT 96
[2024-05-29 09:12] LABS: HEMATOCRIT 21.9 % (36.0-47.0); HEMOGLOBIN 7.1 g/dl (12.0-15.5); MEAN CORPUSCULAR HEMOGLOBIN 29.7 pg (27.0-33.0); MEAN CORPUSCULAR HGB CONC 32.4 g/dl (32.0-36.5); MEAN CORPUSCULAR VOLUME 91.6 fl (80.0-96.0); PLATELET COUNT, AUTOMATED 188 10^3/uL (150-450); RED BLOOD COUNT 2.39 10^6/uL (4.00-5.40); WHITE BLOOD COUNT 11.5 10^3/uL (4.0-10.0)
[2024-05-29 09:34] VITALS: BP 109/76
[2024-05-29] MEDS: amLODIPine 5 MG TAB PO SCH (09:34)
[2024-05-29] MEDS ORDERED: ISOVUE-370 76% 100ML VIAL As Ordered ONE (11:24)
[2024-05-29 12:00] VITALS: BP 105/64; TEMP 97.9; O2SAT 98
== END 2024-05-29 16:50 | disposition home or self-care (01) ==
LOC: M SDC 09:05 → EDSTATUS 13:00 → M MS5PR 15:25 → M SDC 05-29 16:50
PROVIDERS: ATTEND Urology
DX: N20.0 Calculus of kidney (principal); I95.81 Postprocedural hypotension; I10 Essential (primary) hypertension; Z88.1 Allergy status to other antibiotic agents; Z88.0 Allergy status to penicillin; Z91.018 Allergy to other foods; Z91.048 Other nonmedicinal substance allergy status; Z79.899 Other long term (current) drug therapy
CPT/HCPCS: 36415; 50080; 74177; 76000; 82365; 85027; C1769; C1887; J0131; J1100; J1596; J2250; J2405; J2550; J2765; J3010; Q9967

== ENCOUNTER → 2024-05-31 | Outpatient (CLI) | payer BC ==
[~2024-05-31] MED LIST changes: +CIPR-249 PO; +DOCU100C16 PO; +DULC5TAB PO; +HYDR-3713 PO; +SENN-186 PO
[2024-05-31 11:28] LABS: HEMATOCRIT 23.5 % (36.0-47.0); HEMOGLOBIN 7.7 g/dl (12.0-15.5); MEAN CORPUSCULAR HEMOGLOBIN 30.2 pg (27.0-33.0); MEAN CORPUSCULAR HGB CONC 32.8 g/dl (32.0-36.5); MEAN CORPUSCULAR VOLUME 92.2 fl (80.0-96.0); PLATELET COUNT, AUTOMATED 194 10^3/uL (150-450); RED BLOOD COUNT 2.55 10^6/uL (4.00-5.40); WHITE BLOOD COUNT 7.3 10^3/uL (4.0-10.0)
== END ==
LOC: M LAB 10:44
PROVIDERS: ATTEND Urology
DX: R31.0 Gross hematuria (principal)

== ENCOUNTER → 2024-06-22 | Outpatient (CLI) | payer BC | LOC: M RAD 13:37 | PROVIDERS: ATTEND Urology | DX: N20.0 Calculus of kidney (principal) ==

== ENCOUNTER 2024-09-27 09:23 | Day surgery (SDC) | payer BC ==
[~2024-09-27] VITALS: Ht 154.9 cm; Wt 63.3 kg
[~2024-09-27 09:23] MED LIST changes: +ACET1TAB55 PO; -BUPR-597 PO; +BUPR-766 PO; +DOXY-440 PO; +LIDOCAINE 2% 100MG/5ML SDV (FOR ANES.) As Ordered ONE; +MIDAZOLAM INJ 2MG/2ML VIAL As Ordered ONE; +ONDANSETRON 4MG 2ML VIAL As Ordered ONE; +SERT50TA29 PO; +fentaNYL 100 MCG/2 ML INJECTION As Ordered ONE; +propofoL 200 MG/20 ML VIAL As Ordered ONE
[2024-09-27] MEDS ORDERED: LR 1,000 ML IV SCH ×2 (09:55→12:40)
[2024-09-27] MEDS: ceFAZolin SOD 2 GM IV ONCE IV ONE (10:42)
[2024-09-27] MEDS ORDERED: ACETAMINOPHEN 1000MG/100ML IV BAG As Ordered ONE (10:49)
[2024-09-27] MEDS: ISOVUE-300 61% 100ML VIAL As Ordered ONE (12:00)
[2024-09-27] MEDS ORDERED: HYDROMORPHONE HCL 0.5 MG/ 0.5 ML SYRINGE IV PRN (12:40)
[2024-09-27] MEDS ORDERED: oxyCODONE 5MG TAB PO PRN (12:40)
[2024-09-27] MEDS ORDERED: fentaNYL 100 MCG/2 ML INJECTION IV PRN (12:40)
[2024-09-27] MEDS: ONDANSETRON 4MG 2ML VIAL IV PRN (12:57)
[2024-09-27] MEDS ORDERED: MACR100C43 PO (13:00)
[2024-09-27] MEDS ORDERED: OXYB5TAB14 PO (13:00)
[2024-09-27] MEDS ORDERED: PYRI1TAB5 PO (13:00)
[2024-09-27] MEDS: diphenhydrAMINE 50MG/ML VIAL IV PRN (13:41)
[2024-09-27] MEDS ORDERED: METOCLOPRAMIDE INJ 10MG/2ML VIAL IV ONE (14:30)
[2024-09-27 15:50] VITALS: BP 122/76; TEMP 98.2; O2SAT 98
== END 2024-09-27 16:30 | disposition home or self-care (01) ==
LOC: M SDC 09:23
PROVIDERS: ATTEND Urology
DX: N20.0 Calculus of kidney (principal); J45.909 Unspecified asthma, uncomplicated; Z85.828 Personal history of other malignant neoplasm of skin; Z79.899 Other long term (current) drug therapy; F90.9 Attention-deficit hyperactivity disorder, unspecified type; F32.A Depression, unspecified; Z87.891 Personal history of nicotine dependence; Z88.1 Allergy status to other antibiotic agents; Z88.0 Allergy status to penicillin; Z91.018 Allergy to other foods; Z91.048 Other nonmedicinal substance allergy status; Z87.442 Personal history of urinary calculi; F41.9 Anxiety disorder, unspecified
CPT/HCPCS: 52356; 76000; 82365; C1769; C1894; C2617; J0131; J0690; J1100; J1200; J2250; J2405; J3010; Q9967